=== PATIENT | male | born 1960 | race Caucasian/White ===

== ENCOUNTER → 2017-05-17 | Outpatient (CLI) | payer OTHER ==
[~2017-05-17] MED LIST: ACETAMINOPHEN; BLOOD PRESSURE; BRILINTA90 MG; CELEXA; COLCHICINE; ENALAPRIL MALE2.5 MG; HUMULIN R100 U/ML; LASIX; LOPRESSOR; NEURONTIN; SIMVASTATIN80 MG; SYNTHROID0.15 MG
--- NOTE | ~2017-05-17 | US37 ---
[facility] A Service of [facility] RADIOLOGY TEXT RESULTS PATIENT: YOHANNES GARCIA JR LOCATION: CNIV : 64 UNIT #: [id number] AGE: [address]: Titus Gabriel MD SEX: M ORDER DR: [id number] [facility] [address] [place], [place] [address] [id number] O MR#: [id number] Acc #: [id number] NAME: YOHANNES GARCIA JR : 1960 SEX: M STUDY DATE/TIME: 05/17/2017 11:53 UNIT: CNIV ROOM: STUDY DESCRIPTION: US Carotid W/Doppler Bilateral Attending Physician: Titus Gabriel M.D. Referring Physician: Titus Gabriel M.D. Ordering Physician: Titus Gabriel M.D. Primary Care Physician: Primary Care Physician No MEDICAL IMAGING REPORT This report is preliminary unless electronic signature is present EXAM Bilateral carotid duplex HISTORY Coronary artery disease. FINDINGS Duplex imaging of the carotid arteries was performed. The right common carotid artery is patent. The internal and external carotid arteries all appear to be patent with no plaque or stenosis. Velocity in the right common carotid artery is 80. Internal is 65 and external is 73 cm/sec. Right ICC:CCA ratio is 0.6. On the left side the common carotid artery is patent. Mild hyperechoic plaque is seen in the left internal carotid artery. Velocity in the left common carotid artery is 59, internal 56, external is 80 cm/sec. Left ICC:CCA ratio is 1.2. Antegrade flow is seen in the right and left vertebral arteries. IMPRESSION Right internal carotid artery is normal with no plaque or stenosis. Plaque with less than 50% stenosis is seen in the left internal carotid artery. Antegrade flow is seen in the right and left vertebral arteries. Dictated by... Nacho Carrillo M.D. THIS IS AN ELECTRONICALLY VERIFIED REPORT Nacho Carrillo M.D. at 05/25/2017 2:15 PM [facility] A Service of [facility] RADIOLOGY TEXT RESULTS PATIENT: YOHANNES GARCIA JR LOCATION: CNIV : 64 UNIT #: [id number] AGE: [address]: Titus Gabriel MD SEX: M ORDER DR: Fili TD: 05/18/2017 07:05 JOB #: [id number] MEDICAL IMAGING REPORT Page 1 of 1 COPY
== END | disposition home or self-care (01) ==
LOC: CNIV 10:30
DX: I25.10 Atherosclerotic heart disease of native coronary artery without angina pectoris (principal); E78.5 Hyperlipidemia, unspecified; I65.22 Occlusion and stenosis of left carotid artery
CPT/HCPCS: 93880